=== PATIENT | female | born 1960 | race Caucasian/White ===

== ENCOUNTER → 2017-01-17 | Outpatient (CLI) | payer OTHER | END | disposition home or self-care (01) | LOC: CFH 07:44 | PROVIDERS: ATTEND Obstetrics & Gynecology | DX: Z12.31 Encounter for screening mammogram for malignant neoplasm of breast (principal) | CPT/HCPCS: G0202 ==

== ENCOUNTER 2019-06-09 14:23 | Emergency (ER) | payer BC, OTHER ==
[~2019-06-09] VITALS: Ht 162.6 cm; Wt 72.9 kg
[2019-06-09] MEDS ORDERED: SODIUM CHLORIDE FLUSH 10ML SYR IVF ONE (15:00)
[2019-06-09] MEDS ORDERED: SODIUM CHLORIDE 0.9% 1,000ML IVBOLUS ONE (15:00)
[2019-06-09] MEDS ORDERED: ONDANSETRON 2MG/ML, 2ML IVPush ONE (15:00)
[2019-06-09 15:04] LABS: BASOPHILS # (AUTO) 0.01 x10^3/uL (0-0.1); BASOPHILS % (AUTO) 0 % (0-1); EOSINOPHILS % (AUTO) 0 % (1-7); LYMPHOCYTES % (AUTO) 4 % (22-44); MD NO; MEAN CORPUSCULAR HEMOGLOBIN 31.4 pg (27.0-34.8); MEAN CORPUSCULAR HGB CONC 34.1 g/dL (32.4-35.8); MEAN CORPUSCULAR VOLUME 92.1 fL (80-100); MEAN PLATELET VOLUME 7.5 fL (7.4-10.4); MONOCYTES # (AUTO) 0.11 x10^3/uL (0.2-0.8); MONOCYTES % (AUTO) 2 % (2-9); NEUTROPHILS # (AUTO) 4.61 x10^3/uL (1.8-6.8); NEUTROPHILS % (AUTO) 94 % (42-75); PLATELET COUNT 202 x10^3/uL (130-400); RED BLOOD COUNT 4.69 x10^6/uL (3.82-5.3); RED CELL DISTRIBUTION WIDTH 13.1 % (9.6-15.2)
[2019-06-09] MEDS ORDERED: MORPHINE SULFATE 4 MG/ML, 1ML ONE ×2 (15:10→15:57)
[2019-06-09] MEDS ORDERED: ONDANSETRON 2MG/ML, 2ML ONE (15:10)
[2019-06-09] MEDS: MORPHINE SULFATE 4 MG/ML, 1ML IVPush PRN ×2 (15:15→15:59)
[2019-06-09 15:16] LABS: ALANINE AMINOTRANSFERASE 104 U/L (12-78); ALBUMIN 3.6 g/dL (3.4-5.0); ANION GAP 9 mmol/L (5-15); CHLORIDE 104 mmol/L (98-107); CREATININE 1.18 mg/dL (0.55-1.02)
[2019-06-09 15:17] LABS: ALKALINE PHOSPHATASE 86 U/L (45-117); BILIRUBIN,TOTAL 1.2 mg/dL (0.2-1.0); TOTAL PROTEIN 7.1 g/dL (6.4-8.2)
[2019-06-09 16:32] LABS: MICROSCOPIC AUTO
[2019-06-09 16:38] LABS: CULTURE INDICATED? NO
[2019-06-09 16:48] VITALS: BP 121/65
--- NOTE | 2019-06-09 16:48 | NUR ---
RECEIVED BEDSIDE REPORT AND CARE FROM [facility]. CARE ASSUMED AT THIS TIME. VSS. UA SENT TO LAB BY [facility], AWAITING RESULTS. PT REPORTS PAIN IMPROVED TO 3/10. DENIES NAUSEA. PT GIVEN WATER BY [facility] AND MD ACOTSA, TOLERATING PO/ICE CHIPS WELL. CALL LIGHT IN REACH. FALL PRECAUTIONS IN PLACE. SIGNIFICANT OTHER AT BEDSIDE. AWAITING RESULTS, THEN UP FOR RECHECK
--- NOTE | 2019-06-09 16:54 | NUR ---
TASK RN: MD AT BEDSIDE FOR REASSESSMENT.
--- NOTE | 2019-06-09 16:54 | NUR ---
REPORT AND CARE TO BREAK LAWRENCE MONZON
--- NOTE | 2019-06-09 17:11 | NUR ---
TASK RN: Patient/Caregiver given discharge instructions and they have confirmed that they understand the instructions. Patient ambulatory with steady gait. PIV REMOVED WITH TIP INTACT.
== END 2019-06-09 17:13 | disposition home or self-care (01) ==
LOC: ED 14:59
DX: K52.9 Noninfective gastroenteritis and colitis, unspecified (principal); R10.32 Left lower quadrant pain; R10.31 Right lower quadrant pain; Z90.49 Acquired absence of other specified parts of digestive tract; Z90.710 Acquired absence of both cervix and uterus
CPT/HCPCS: 36415; 74176; 80053; 81001; 83690; 85025; 96361; 96374; 96375; 96376; 99284; J2270; J2405; J7030

== ENCOUNTER → 2019-06-17 | Outpatient (CLI) | payer BC | END | disposition home or self-care (01) | LOC: CFH 16:10 | PROVIDERS: ATTEND Emergency Medicine | DX: M79.661 Pain in right lower leg (principal); R60.0 Localized edema ==